=== PATIENT | male | born 2000 | race American Indian/Alaskan Native ===

== ENCOUNTER 2020-08-10 01:12 | Emergency (ER) | payer MEDICAID, OTHER ==
[2020-08-10] MEDS ORDERED: LORazepam 2 MG/ML SDV IVPUSH ONE (01:19)
[2020-08-10] MEDS ORDERED: LORazepam 2 MG/ML SDV ONE (01:22)
[2020-08-10] MEDS ORDERED: LORazepam 2 MG/ML SDV IV ONE ×2 (01:26→01:35)
[2020-08-10 01:47] LABS: PTT,PARTIAL THROMBOPLSTIN TIME 26.7 SEC (22.0-34.0)
[2020-08-10 01:50] LABS: ANION GAP 20.5 mEq/L (7-13); CHLORIDE,CL 105 mmol/L (98-107); SODIUM,NA 141 mmol/L (136-145)
[2020-08-10] MEDS ORDERED: Sodium Chloride 0.9% 1,000 ML IV ONE (02:07)
[2020-08-10] MEDS ORDERED: Norepinephrine 4 MG/4 ML SDV ONE (02:17)
[2020-08-10 02:27] LABS: AMPHETAMINES,URINE POSITIVE (NEGATIVE); BARBITURATES,URINE NEGATIVE (NEGATIVE); BENZODIAZEPINE,URINE NEGATIVE (NEGATIVE); MDMA (ECSTASY), URINE NEGATIVE (NEGATIVE); METHADONE,URINE NEGATIVE (NEGATIVE); METHAMPHETAMINES,URINE POSITIVE (NEGATIVE); OPIATES,URINE NEGATIVE (NEGATIVE); OXYCODONE,URINE NEGATIVE (NEGATIVE); PHENCYCLIDINE,URINE NEGATIVE (NEGATIVE); TCA,URINE NEGATIVE (NEGATIVE)
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
[2020-08-10] MEDS ORDERED: Norepinephrine 4 MG in Dextrose 5% in Water 246 ML IV SCH ×2 (02:30)
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
[2020-08-10] MEDS ORDERED: Sodium Chloride 0.9% 500 ML IV ONE (04:32)
[2020-08-10 04:36] VITALS: BP 89/43; PULSE 125
== END 2020-08-10 07:50 | disposition home or self-care (01) ==
LOC: DL.ED 01:12
DX: S01.01XA Laceration without foreign body of scalp, initial encounter (principal); F10.129 Alcohol abuse with intoxication, unspecified; F15.10 Other stimulant abuse, uncomplicated; Y90.8 Blood alcohol level of 240 mg/100 ml or more; X99.9XXA Assault by unspecified sharp object, initial encounter
CPT/HCPCS: 12002; 36415; 36430; 70460; 72125; 80053; 80305; 80307; 85025; 85610; 85730; 86850; 86900; 86901; 86920; 86922; 96365; 96366; 99285; J2060; J7030; J7040; J7060; P9016; 99283

== ENCOUNTER 2020-09-26 05:34 | Emergency (ER) | payer MEDICAID ==
[2020-09-26] MEDS ORDERED: MVI, Adult with Vitamin K 10 ML, Folic Acid 1 MG, Thiamine 100 MG in Lactated Ringers 1... IV ONE ×4 (05:43)
--- NOTE | 2020-09-26 06:07 | EDM.PDOCBH ---
<Vivian Alvarez - Last Filed: 09/26/20 07:31> ED HPI GENERAL MEDICAL PROBLEM - General Chief Complaint: Behavioral/Psych Stated Complaint: anxiety/hard to breath Time Seen by Provider: 09/26/20 05:45 - Related Data Allergies Allergy/AdvReac Type Severity Reaction Status Date / Time No Known Allergies Allergy Verified 09/26/20 05:42 Home Meds: Home Meds . [No Known Home Meds] 10/31/13 [History] COURSE, BEHAVIORAL HEALTH COMP - Course Re-Assessment/Re-Exam: Patient states improvement in symptoms of anxiety following fluid infusion; ETOH 336. He states he has a ride home. Will discharge patient home. Red flag signs and symptoms which would warrant reevaluation discussed. Patient dylon balized understanding and agreement with the plan of care. Departure - Departure Time of Disposition: 07:06 Disposition: Home, Self-Care 01 Condition: Good Clinical Impression: Anxiety, Blood alcohol level greater than 0.3, Hypernatremia, Elevated LFTs Acute alcohol intoxication Qualifiers: Complication of substance-induced condition: uncomplicated Qualified Code(s): F10.920 - Alcohol use, unspecified with intoxication, uncomplicated - Discharge Information *PRESCRIPTION DRUG MONITORING PROGRAM REVIEWED*: Not Applicable *COPY OF PRESCRIPTION DRUG MONITORING REPORT IN PATIENT JENNIFER: Not Applicable Instructions: Alcohol Intoxication, [id number], Managing Anxiety, Adult Forms: ED Department Discharge Additional Instructions: 1.) Refrain from drinking alcohol to excess. 2.) Drink plenty of water to stay hydrated. 3.) Eat a bland diet while you're recovering from your acute alcohol intoxication; avoid spicy, high-fat, greasy foods. <Taniya Boyd - Last Filed: 10/01/20 03:12> ED HPI GENERAL MEDICAL PROBLEM - General Source of Information: Reports: Patient, RN History Limitations: Reports: No Limitations - History of Present Illness INITIAL COMMENTS - FREE TEXT/NARRATIVE: ED with c/o anxiety attack feeling SOB on awakening. Admits ETOH yesterday, drinks half gallon vodka at least 4 times weekly. Last ETOH midnight. Denied other drug use. No fever chills or cough. Denies prior anxiety attacks. Denied withdrawal hx. Last drug/meth use approximately 3 months prior. Onset: Today Past Medical History - Past Health History Medical/Surgical History: Denies Medical/Surgical History Psychiatric History: Reports: Addiction - Past Surgical History GI Surgical History: Reports: Appendectomy, Cholecystectomy Social & Family History - Family History Family Medical History: No Pertinent Family History - Tobacco Use Tobacco Use Status *Q: Never Tobacco User Second Hand Smoke Exposure: Yes - Caffeine Use Caffeine Use: Reports: None - Recreational Drug Use Recreational Drug Use: No - Living Situation & Occupation Living situation: Reports: Single Occupation: Student ED ROS GENERAL - Review of Systems Review Of Systems: Comprehensive ROS is negative, except as noted in HPI. ED EXAM, BEHAVIORAL HEALTH - Physical Exam Exam: See Below Exam Limited By: No Limitations General Appearance: Alert, No Apparent Distress Eye Exam: Bilateral Eye: EOMI Ears: Normal External Exam, Hearing Grossly Normal Nose: Normal Inspection Throat/Mouth: Normal Inspection Head: Atraumatic, Normocephalic Neck: Normal Inspection Respiratory/Chest: No Respiratory Distress, Lungs Clear, Normal Breath Sounds Cardiovascular: Normal Peripheral Pulses, Regular Rate, Rhythm, Tachycardia GI/Abdominal: Normal Bowel Sounds, Soft, Non-Tender Extremities: Normal Range of Motion Neurological: Alert. No: Normal Cognition (slower than average) Psychiatric: Alert, Normal Affect Skin Exam: Warm, Dry, Intact. No: Signs of self injury COURSE, BEHAVIORAL HEALTH COMP - Course Vital Signs: Last Vital Signs Temp 98.1 F 09/26/20 05:43 Pulse 120 H 09/26/20 05:43 Resp 24 H 09/26/20 05:43 BP 148/89 H 09/26/20 05:43 Pulse Ox 100 09/26/20 05:43 Orders, Labs, Meds: Laboratory Tests 09/26/20 09/26/20 09/26/20 Range/Units 05:48 05:48 07:10 WBC 10.9 H (5.0-10.0) 10^3/uL RBC 4.29 L (4.6-6.2) 10^6/uL Hgb 11.2 L D (14.0-18.0) g/dL Hct 35.0 L (40.0-54.0) % MCV 81.6 D (80-100) fL MCH 26.1 L (27.0-34.0) pg MCHC 32.0 L (33.0-35.0) g/dL Plt Count 468 H D (150-450) 10^3/uL Neut % (Auto) 53.2 (42.2-75.2) % Lymph % (Auto) 36.1 (20.5-50.1) % [place] % (Auto) 10.1 H (2-8) % Eos % (Auto) 0.2 L (1.0-3.0) % Baso % (Auto) 0.4 (0.0-1.0) % Sodium 147 H (136-145) mmol/L Potassium 3.5 (3.5-5.1) mmol/L Chloride 108 H (98-107) mmol/L Carbon Dioxide 27 (21-32) mmol/L Anion Gap 15.5 H (7-13) mEq/L BUN 13 (7-18) mg/dL Creatinine 0.93 (0.70-1.30) mg/dL Est Cr Clr Drug Dosing TNP Estimated GFR (MDRD) > 60 BUN/Creatinine Ratio 14.0 (No establ ref range) Glucose 108 H (74-99) mg/dL Calcium 7.3 L (8.5-10.1) mg/dL Total Bilirubin 0.2 (0.2-1.0) mg/dL AST 71 H (15-37) U/L ALT 65 H (16-63) U/L Alkaline Phosphatase 118 H (46-116) U/L Total Protein 7.2 (6.4-8.2) g/dL Albumin 3.4 (3.4-5.0) g/dL Globulin 3.8 Albumin/Globulin Ratio 0.9 Urine Opiates Screen Negative (NEGATIVE) Ur Oxycodone Screen Negative (NEGATIVE) Urine Methadone Screen Negative (NEGATIVE) Ur Barbiturates Screen Negative (NEGATIVE) U Tricyclic Antidepress Negative (NEGATIVE) Ur Phencyclidine Scrn Negative (NEGATIVE) Ur Amphetamine Screen Negative (NEGATIVE) U Methamphetamines Scrn Negative (NEGATIVE) Urine MDMA Screen Negative (NEGATIVE) U Benzodiazepines Scrn Negative (NEGATIVE) Urine Cocaine Screen Negative (NEGATIVE) U Marijuana (THC) Screen Positive H (NEGATIVE) Ethyl Alcohol 332 (0) mg/dL Medications Discontinued Medications Generic Name Dose Route Start Last Admin Trade Name Freq PRN Reason Stop Dose Admin Multivitamins/Minerals 10 ml/ 1,011.2 mls @ 999 mls/hr 09/26/20 05:43 09/26/20 06:03 Folic Acid 1 mg/ Thiamine HCl IV 03/18/21 06:43 999 mls/hr 100 mg/ Lactated Ringer's ONETIME ONE Administration Sepsis Event Note (ED) - Evaluation Sepsis Screening Result: No Definite Risk
[2020-09-26 06:10] LABS: ANION GAP 15.5 mEq/L (7-13); CHLORIDE,CL 108 mmol/L (98-107); SODIUM,NA 147 mmol/L (136-145)
[2020-09-26 06:15] VITALS: BP 148/89; PULSE 120
== END 2020-09-26 07:30 | disposition home or self-care (01) ==
LOC: DL.ED 05:34
DX: F41.9 Anxiety disorder, unspecified (principal); F10.120 Alcohol abuse with intoxication, uncomplicated; R79.89 Other specified abnormal findings of blood chemistry; E87.0 Hyperosmolality and hypernatremia; Z77.22 Contact with and (suspected) exposure to environmental tobacco smoke (acute) (chronic); Y90.0 Blood alcohol level of less than 20 mg/100 ml
CPT/HCPCS: 36415; 80053; 80305; 80307; 85025; 96365; 99284; J3411; J7120; J3490

== ENCOUNTER 2021-02-27 14:30 | Emergency (ER) | payer MEDICAID ==
[2021-02-27 14:52] VITALS: BP 155/89; PULSE 104
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
== END 2021-02-27 15:10 | disposition left against medical advice (07) ==
LOC: DL.ED 14:30
DX: R56.9 Unspecified convulsions (principal)
CPT/HCPCS: 99282; 99285

== ENCOUNTER 2021-03-01 19:19 | Emergency (ER) | payer MEDICAID ==
--- NOTE | 2021-03-01 19:55 | EDM.PDOC ---
ED HPI GENERAL MEDICAL PROBLEM - General Chief Complaint: Respiratory Problem Stated Complaint: HARD TO BREATH, COUGH UP BLOOD Time Seen by Provider: 03/01/21 19:54 Source of Information: Reports: Patient - History of Present Illness INITIAL COMMENTS - FREE TEXT/NARRATIVE: Patient is an unfortunate 20-year-old male who presents emerged department today with complaint of hemoptysis. The patient reports that he was out [place] the [place] 1 week ago and has had a productive yellow sputum cough ever since. Patient reports that he normally drinks a liter of alcohol daily and for the last 4 days he had not and that he drank a liter of alcohol this morning he started having hemoptysis today and this concerned the patient so presented to the emergency department for further evaluation. Patient reports that he has blood streaks mixed with the sputum is not solely blood, the patient denies any fever no chills no body aches no chest pain no shortness of breath Chest Pain Score (Numeric/FACES): 4 - Related Data Allergies Allergy/AdvReac Type Severity Reaction Status Date / Time No Known Allergies Allergy Verified 03/01/21 20:05 Home Meds: Home Meds . [No Known Home Meds] 10/31/13 [History] Past Medical History - Past Health History Medical/Surgical History: Denies Medical/Surgical History Psychiatric History: Reports: Addiction - Past Surgical History GI Surgical History: Reports: Appendectomy, Cholecystectomy Social & Family History - Family History Family Medical History: No Pertinent Family History - Caffeine Use Caffeine Use: Reports: None - Living Situation & Occupation Living situation: Reports: Single Occupation: Student ED ROS GENERAL - Review of Systems Review Of Systems: See Below Constitutional: Denies: Fever, Chills Respiratory: Reports: Cough, Sputum (Yellow), Hemoptysis ED EXAM, GENERAL - Physical Exam Exam: See Below General Appearance: Alert, WD/WN, Mild Distress Throat/Mouth: Normal Inspection, Normal Lips, Normal Teeth, Normal Gums, Normal Oropharynx, Normal Voice, No Airway Compromise Head: Atraumatic, Normocephalic Neck: Normal Inspection, Supple, Non-Tender, Full Range of Motion Respiratory/Chest: No Respiratory Distress, Lungs Clear, Normal Breath Sounds, No Accessory Muscle Use, Chest Non-Tender Cardiovascular: Normal Peripheral Pulses, Regular Rate, Rhythm, No Edema, No Gallop, No JVD, No Murmur, No Rub GI/Abdominal: Normal Bowel Sounds, Soft, Non-Tender, No Organomegaly, No Distention, No Abnormal Bruit, No Mass Back Exam: Normal Inspection, Full Range of Motion, NT Extremities: Normal Inspection, Normal Range of Motion, Non-Tender, Normal Capillary Refill, No Pedal Edema Neurological: Alert, Oriented Skin Exam: Warm, Dry, Intact, No Rash #1 Interpretation EKG Date: 03/01/21 Time: 21:20 Rhythm: NSR [place]: Normal P-Wave: Present ST-T: Other (NSST) QT: Normal EKG Interpretation Comments: Left anterior fascicular block, lateral T wave flattening V6, no acute ischemic changes no STEMI Course - Vital Signs Text/Narrative:: Discussed the case with Dr. Major Lopez in [place] he accepts the patient in transfer ischemic cardiomyopathy at 2225 Last Recorded V/S: Last Vital Signs Temp 97.6 F 03/01/21 21:26 Pulse 101 H 03/01/21 21:26 Resp 40 H 03/01/21 21:26 BP 128/73 03/01/21 21:26 Pulse Ox 93 L 03/01/21 21:26 - Orders/Labs/Meds Labs: Laboratory Tests 03/01/21 03/01/21 03/01/21 Range/Units 20:40 20:40 20:40 WBC 8.7 (5.0-10.0) 10^3/uL RBC 4.67 (4.6-6.2) 10^6/uL Hgb 12.6 L (14.0-18.0) g/dL Hct 38.7 L (40.0-54.0) % MCV 82.9 (80-100) fL MCH 27.0 (27.0-34.0) pg MCHC 32.6 L (33.0-35.0) g/dL Plt Count 286 D (150-450) 10^3/uL Neut % (Auto) 67.4 (42.2-75.2) % Lymph % (Auto) 18.6 L (20.5-50.1) % [place] % (Auto) 11.7 H (2-8) % Eos % (Auto) 1.8 (1.0-3.0) % Baso % (Auto) 0.5 (0.0-1.0) % PT 10.3 (9.0-12.0) SEC INR 1.0 (0.9-1.2) Sodium 137 D (136-145) mmol/L Potassium 3.1 L (3.5-5.1) mmol/L Chloride 104 (98-107) mmol/L Carbon Dioxide 23 (21-32) mmol/L Anion Gap 13.1 H (7-13) mEq/L BUN 12 (7-18) mg/dL Creatinine 1.18 (0.70-1.30) mg/dL Est Cr Clr Drug Dosing 108.69 mL/min Estimated GFR (MDRD) > 60 BUN/Creatinine Ratio 10.2 (No establ ref range) Glucose 101 H (70-99) mg/dL Calcium 7.4 L (8.5-10.1) mg/dL Total Bilirubin 0.4 (0.2-1.0) mg/dL AST 109 H (15-37) U/L ALT 122 H (16-63) U/L Alkaline Phosphatase 110 (46-116) U/L Troponin I High Sens (<=76) pg/mL B-Natriuretic Peptide (0-100) pg/ml Total Protein 6.6 (6.4-8.2) g/dL Albumin 2.1 L (3.4-5.0) g/dL Globulin 4.5 Albumin/Globulin Ratio 0.47 Urine Opiates Screen (NEGATIVE) Ur Oxycodone Screen (NEGATIVE) Urine Methadone Screen (NEGATIVE) Ur Barbiturates Screen (NEGATIVE) U Tricyclic Antidepress (NEGATIVE) Ur Phencyclidine Scrn (NEGATIVE) Ur Amphetamine Screen (NEGATIVE) U Methamphetamines Scrn (NEGATIVE) Urine MDMA Screen (NEGATIVE) U Benzodiazepines Scrn (NEGATIVE) Urine Cocaine Screen (NEGATIVE) U Marijuana (THC) Screen (NEGATIVE) SARS-CoV-2 RNA (ELYSE) (NEGATIVE) 03/01/21 03/01/21 03/01/21 Range/Units 20:40 21:29 21:48 WBC (5.0-10.0) 10^3/uL RBC (4.6-6.2) 10^6/uL Hgb (14.0-18.0) g/dL Hct (40.0-54.0) % MCV (80-100) fL MCH (27.0-34.0) pg MCHC (33.0-35.0) g/dL Plt Count (150-450) 10^3/uL Neut % (Auto) (42.2-75.2) % Lymph % (Auto) (20.5-50.1) % [place] % (Auto) (2-8) % Eos % (Auto) (1.0-3.0) % Baso % (Auto) (0.0-1.0) % PT (9.0-12.0) SEC INR (0.9-1.2) Sodium (136-145) mmol/L Potassium (3.5-5.1) mmol/L Chloride (98-107) mmol/L Carbon Dioxide (21-32) mmol/L Anion Gap (7-13) mEq/L BUN (7-18) mg/dL Creatinine (0.70-1.30) mg/dL Est Cr Clr Drug Dosing mL/min Estimated GFR (MDRD) BUN/Creatinine Ratio (No establ ref range) Glucose (70-99) mg/dL Calcium (8.5-10.1) mg/dL Total Bilirubin (0.2-1.0) mg/dL AST (15-37) U/L ALT (16-63) U/L Alkaline Phosphatase (46-116) U/L Troponin I High Sens 80 H* (<=76) pg/mL B-Natriuretic Peptide 1660 H (0-100) pg/ml Total Protein (6.4-8.2) g/dL Albumin (3.4-5.0) g/dL Globulin Albumin/Globulin Ratio Urine Opiates Screen Negative (NEGATIVE) Ur Oxycodone Screen Negative (NEGATIVE) Urine Methadone Screen Negative (NEGATIVE) Ur Barbiturates Screen Negative (NEGATIVE) U Tricyclic Antidepress Negative (NEGATIVE) Ur Phencyclidine Scrn Negative (NEGATIVE) Ur Amphetamine Screen Negative (NEGATIVE) U Methamphetamines Scrn Negative (NEGATIVE) Urine MDMA Screen Negative (NEGATIVE) U Benzodiazepines Scrn Negative (NEGATIVE) Urine Cocaine Screen Negative (NEGATIVE) U Marijuana (THC) Screen Positive H (NEGATIVE) SARS-CoV-2 RNA (ELYSE) Negative (NEGATIVE) Meds: Medications Discontinued Medications Generic Name Dose Route Start Last Admin Trade Name Freq PRN Reason Stop Dose Admin Furosemide 40 mg 03/01/21 21:10 03/01/21 21:21 Furosemide 40 Mg/4 Ml Vial IVPUSH 03/01/21 21:11 40 mg ONETIME ONE Administration Departure - Departure Time of Disposition: 22:27 Disposition: DC/Tfer to Acute Hospital 02 Condition: Fair Clinical Impression: Ischemic cardiomyopathy CHF (congestive heart failure) Qualifiers: Heart failure type: unspecified Heart failure chronicity: unspecified Qualified Code(s): I50.9 - Heart failure, unspecified - Discharge Information *PRESCRIPTION DRUG MONITORING PROGRAM REVIEWED*: No *COPY OF PRESCRIPTION DRUG MONITORING REPORT IN PATIENT JENNIFER: No Forms: ED Department Discharge Sepsis Event Note (ED) - Focused Exam Vital Signs: Vital Signs Temp Pulse Resp BP Pulse Ox 03/01/21 21:26 97.6 F 101 H 40 H 128/73 93 L 03/01/21 20:05 96.7 F L 96 27 H 138/99 H 94 L 03/01/21 19:53 97.1 F 99 25 H 102/68 91 L
--- NOTE | 2021-03-01 20:23 | CR ---
PROCEDURE INFORMATION: Exam: XR Chest Exam date and time: 03/01/2021 8:05 PM Age: 20 years old Clinical indication: Cough and shortness of breath; Additional info: Cough/hemoptysis TECHNIQUE: Imaging protocol: XR of the chest. Views: 2 views. COMPARISON: No relevant prior studies available. FINDINGS: Lungs: There is mild nonspecific prominence of the pulmonary vasculature. There is mild prominence of the interstitial markings diffusely. No focal consolidation is seen. Pleural spaces: There is slight blunting of the right lateral costophrenic angle suggesting a small pleural effusion. Heart/Mediastinum: The heart is borderline enlarged. Bones/joints: Unremarkable IMPRESSION: Findings are suggestive of mild congestive heart failure with a small right pleural effusion.
[2021-03-01 21:08] LABS: CHLORIDE,CL 104 mmol/L (98-107)
[2021-03-01] MEDS ORDERED: Furosemide 40 MG/4 ML VIAL IVPUSH ONE (21:10)
[2021-03-01 21:14] LABS: ANION GAP 13.1 mEq/L (7-13); SODIUM,NA 137 mmol/L (136-145)
[2021-03-01 21:56] LABS: AMPHETAMINES,URINE NEGATIVE (NEGATIVE); BARBITURATES,URINE NEGATIVE (NEGATIVE); BENZODIAZEPINE,URINE NEGATIVE (NEGATIVE); MDMA (ECSTASY), URINE NEGATIVE (NEGATIVE); METHADONE,URINE NEGATIVE (NEGATIVE); METHAMPHETAMINES,URINE NEGATIVE (NEGATIVE); OPIATES,URINE NEGATIVE (NEGATIVE); OXYCODONE,URINE NEGATIVE (NEGATIVE); PHENCYCLIDINE,URINE NEGATIVE (NEGATIVE); TCA,URINE NEGATIVE (NEGATIVE)
[2021-03-01] MEDS ORDERED: Nitroglycerin/D5W 25 MG/250 ML BOTTLE IV SCH (23:00)
[2021-03-01 23:36] VITALS: BP 133/92; PULSE 101
== END 2021-03-02 00:52 ==
LOC: DL.ED 19:19
DX: I25.5 Ischemic cardiomyopathy (principal); I50.9 Heart failure, unspecified; Z20.822 Contact with and (suspected) exposure to COVID-19
CPT/HCPCS: 36415; 71046; 80053; 80305; 83880; 84484; 85025; 85610; 87635; 93005; 96365; 96375; 99285; J1940; J3490; U0002

== ENCOUNTER 2021-08-01 13:04 | Emergency (ER) | payer MEDICAID ==
[2021-08-01] MEDS ORDERED: Lidocaine 1% with EPINEPHrine 1:100,000 20 ML MDV INJECT ONE (13:22)
[2021-08-01] MEDS ORDERED: Lidocaine 1% with EPINEPHrine 1:100,000 20 ML MDV ONE (13:24)
[2021-08-01 13:33] VITALS: BP 105/58; PULSE 97
[2021-08-01 14:10] LABS: AMPHETAMINES,URINE POSITIVE (NEGATIVE); BARBITURATES,URINE NEGATIVE (NEGATIVE); BENZODIAZEPINE,URINE NEGATIVE (NEGATIVE); MDMA (ECSTASY), URINE NEGATIVE (NEGATIVE); METHADONE,URINE NEGATIVE (NEGATIVE); METHAMPHETAMINES,URINE POSITIVE (NEGATIVE); OPIATES,URINE NEGATIVE (NEGATIVE); OXYCODONE,URINE NEGATIVE (NEGATIVE); PHENCYCLIDINE,URINE NEGATIVE (NEGATIVE); TCA,URINE NEGATIVE (NEGATIVE)
[2021-08-01 14:23] LABS: ACETAMINOPHEN 0 ug/mL (10-30 (Therapeutic)); CHLORIDE,CL 104 mmol/L (98-107); SODIUM,NA 140 mmol/L (136-145)
== END 2021-08-01 15:45 | disposition home or self-care (01) ==
LOC: DL.ED 13:04
DX: S51.812A Laceration without foreign body of left forearm, initial encounter (principal); F15.90 Other stimulant use, unspecified, uncomplicated; Z72.89 Other problems related to lifestyle; Y90.8 Blood alcohol level of 240 mg/100 ml or more; Z72.0 Tobacco use; X78.8XXA Intentional self-harm by other sharp object, initial encounter
CPT/HCPCS: 12002; 36415; 80053; 80143; 80179; 80305-QW; 80307; 81001; 85025; 99284-25

== ENCOUNTER 2021-08-01 19:11 | Emergency (ER) | payer OTHER, MEDICAID ==
[2021-08-01] MEDS ORDERED: Iopamidol 612 MG/ML 100 ML Bottle IVPUSH ONE (19:34)
[2021-08-01 19:44] LABS: ANION GAP 20.5 mEq/L (7-13); CHLORIDE,CL 106 mmol/L (98-107); SODIUM,NA 143 mmol/L (136-145)
== END 2021-08-01 23:25 | disposition home or self-care (01) ==
LOC: DL.ED 19:11
DX: F10.129 Alcohol abuse with intoxication, unspecified (principal); S01.21XA Laceration without foreign body of nose, initial encounter; Y90.8 Blood alcohol level of 240 mg/100 ml or more; V89.2XXA Person injured in unspecified motor-vehicle accident, traffic, initial encounter; Y92.410 Unspecified street and highway as the place of occurrence of the external cause
CPT/HCPCS: 36415; 70450; 71260; 72125; 74177; 80053; 80307; 85025; 99284; Q9967

== ENCOUNTER 2022-03-16 07:14 | Emergency (ER) | payer MEDICAID ==
[2022-03-16 06:35] VITALS: BP 149/101; PULSE 164
[2022-03-16 07:08] LABS: CHLORIDE,CL 94 mmol/L (98-107); SODIUM,NA 131 mmol/L (136-145)
[2022-03-16 07:09] LABS: ESTIMATED GFR 113 mL/min (>=60)
[2022-03-16 07:10] LABS: ACETAMINOPHEN 0 ug/mL (10-30 (Therapeutic))
[2022-03-16 07:12] LABS: BARBITURATES,URINE NEGATIVE (NEGATIVE); BENZODIAZEPINE,URINE NEGATIVE (NEGATIVE); MDMA (ECSTASY), URINE NEGATIVE (NEGATIVE); METHADONE,URINE NEGATIVE (NEGATIVE); METHAMPHETAMINES,URINE POSITIVE (NEGATIVE); OPIATES,URINE NEGATIVE (NEGATIVE); TCA,URINE NEGATIVE (NEGATIVE)
[2022-03-16 07:13] LABS: AMPHETAMINES,URINE POSITIVE (NEGATIVE); OXYCODONE,URINE NEGATIVE (NEGATIVE); PHENCYCLIDINE,URINE NEGATIVE (NEGATIVE)
[~2022-03-16 07:14] MED LIST: Diltiazem 25 MG/5 ML SDV IVPUSH ONE; Diltiazem 25 MG/5 ML SDV ONE; LORazepam 2 MG/ML SDV IVPUSH ONE; Sodium Chloride 0.9% 1,000 ML IV ONE
[2022-03-16] MEDS ORDERED: MVI, Adult with Vitamin K 10 ML, Thiamine 100 MG, Folic Acid 1 MG in Lactated Ringers 1... IV ONE ×4 (07:18)
[2022-03-16] MEDS ORDERED: LORazepam 2 MG/ML SDV IVPUSH ONE ×2 (07:19→08:52)
[2022-03-16] MEDS ORDERED: Sodium Chloride 0.9% 10 ML Syringe FLUSH PRN (07:37)
[2022-03-16] MEDS ORDERED: cefTRIAXone 1 GM in Sodium Chloride 0.9% 50 ML IV ONE (07:37)
[2022-03-16] MEDS ORDERED: Diltiazem 125 MG in Sodium Chloride 0.9% 100 ML IV SCH (07:45)
[2022-03-16] MEDS ORDERED: Sodium Chloride 0.9% 1,000 ML IV ONE (08:51)
[2022-03-16] MEDS ORDERED: PHENobarbital Sodium 65 MG/ML SDV IVPUSH ONE (10:29)
[2022-03-18 13:46] LABS: C.TRACHOMATIS BY TMA Negative (Negative); N.GONORRHOEAE BY TMA Positive (Negative)
== END 2022-03-16 10:55 ==
LOC: DL.ED 07:14
DX: R56.9 Unspecified convulsions (principal); F10.230 Alcohol dependence with withdrawal, uncomplicated; I48.91 Unspecified atrial fibrillation; F15.10 Other stimulant abuse, uncomplicated; Z20.822 Contact with and (suspected) exposure to COVID-19; Y90.0 Blood alcohol level of less than 20 mg/100 ml
CPT/HCPCS: 36415; 71045; 80053; 80143; 80179; 80305-QW; 80307; 81001; 82140; 82150; 83605; 83690; 83735; 84443; 84484; 85025; 85610; 87040; 87086; 87491; 87563; 87591; 93005; 93010; 96361; 96365; 96366; 96368; 96375; 96376; 99285; 99285-25; J0696; J2060; J3411; J3490; J7030; J7120; U0002

== ENCOUNTER 2023-08-19 17:43 | Emergency (ER) | payer MEDICAID ==
[2023-08-19 17:51] VITALS: BP 131/89; PULSE 94
[2023-08-19 18:05] LABS: BASOPHILS PERCENT AUTO 0.3 % (0.0-1.0); EOSINOPHILS PERCENT AUTO 2.8 % (1.0-3.0); HEMATOCRIT 49.8 % (40.0-54.0); HEMOGLOBIN 17.3 g/dL (14.0-18.0); LYMPHOCYTES PERCENT AUTO 48.5 % (20.5-50.1); MEAN CORPUSCULAR HEMOGLOBIN 30.7 pg (27.0-34.0); MEAN CORPUSCULAR HGB CONC 34.7 g/dL (33.0-35.0); MEAN CORPUSCULAR VOLUME 88.3 fL (80-100); MONOCYTES PERCENT AUTO 6.7 % (2-8); NEUTROPHILS PERCENT AUTO 41.7 % (42.2-75.2); PLATELET COUNT,PLT 355 10^3/uL (150-450); RED BLOOD CELL COUNT 5.64 10^6/uL (4.6-6.2); WHITE BLOOD CELL COUNT,WBC 7.5 10^3/uL (5.0-10.0)
[2023-08-19] MEDS: Sodium Chloride 0.9% 10 ML Syringe FLUSH PRN (18:09)
[2023-08-19 18:22] LABS: INR 0.9 (0.9-1.2); PROTHROMBIN TIME 9.6 SEC (9.0-12.0)
[2023-08-19 18:27] LABS: A/G RATIO 0.9; ALANINE AMINOTRANSFERASE,ALT 147 U/L (16-63); ALBUMIN 3.5 g/dL (3.4-5.0); ALKALINE PHOSPHATASE 110 U/L (46-116); AMYLASE 69 U/L (25-115); ANION GAP 14.5 mEq/L (7-13); ASPARTATE AMNIOTRANSFERASE,AST 101 U/L (15-37); BILIRUBIN TOTAL 0.2 mg/dL (0.2-1.0); BLOOD UREA NITROGEN,BUN 11 mg/dL (7-18); BUN/CREATININE RATIO 13.8 (No establ ref range); CALCIUM 7.8 mg/dL (8.5-10.1); CARBON DIOXIDE,CO2 24 mmol/L (21-32); CHLORIDE,CL 106 mmol/L (98-107); EST CRCL DRUG DOSING (CG) 151.65 mL/min; GLUCOSE RANDOM 110 mg/dL (70-99); LIPASE 49 U/L (16-77); POTASSIUM,K 3.5 mmol/L (3.5-5.1); PROTEIN TOTAL,TP 7.6 g/dL (6.4-8.2); SODIUM,NA 141 mmol/L (136-145)
[2023-08-19 18:28] LABS: ESTIMATED GFR 127 mL/min (>=60)
[2023-08-19 18:29] LABS: ETHANOL BLOOD MEDICAL 434 mg/dL (0)
[2023-08-19 18:30] LABS: B-TYPE NATRIURETIC PEPTIDE,BNP < 5 pg/ml (0-100)
[2023-08-19 18:44] LABS: CORONAVIRUS COVID-19 NAA NEGATIVE (NEGATIVE); INFLUENZA A NAA NEGATIVE (NEGATIVE); INFLUENZA B NAA NEGATIVE (NEGATIVE); RESPIRATORY SYNCYTIAL VIR NAA NEGATIVE (NEGATIVE)
[2023-08-19] MEDS: Sodium Chloride 0.9% 1,000 ML IV ONE (18:46)
[2023-08-19] MEDS: Thiamine 100 MG in Sodium Chloride 0.9% 100 ML IV ONE (18:46)
== END 2023-08-19 19:15 | disposition home or self-care (01) ==
LOC: DL.ED 17:43
DX: M94.0 Chondrocostal junction syndrome [Tietze] (principal); F10.10 Alcohol abuse, uncomplicated; Y90.8 Blood alcohol level of 240 mg/100 ml or more
CPT/HCPCS: 0241U; 36415; 71045; 80053; 80307; 82150; 83690; 83880; 84145; 84484; 85025; 85610; 85730; 93005; 93010; 96365; 99284; 99285; J3411; J3490; J7030

== ENCOUNTER 2024-01-30 20:36 | Emergency (ER) | payer MEDICAID ==
[2024-01-30 20:55] VITALS: PULSE 101
[2024-01-30] MEDS: Bupivacaine 0.5% 30 ML SDV ONE (21:38)
[2024-01-30] MEDS: Ketorolac 30 MG/ML SDV IM ONE (22:20)
[2024-01-30] MEDS: Acetaminophen 500 MG Tab PO ONE (22:20)
[2024-01-30] MEDS: fentaNYL 100 MCG/2 ML SDV IVPUSH ONE (23:28)
[2024-01-31 00:08] VITALS: BP 148/108
== END 2024-01-30 23:30 | disposition home or self-care (01) ==
LOC: DL.ED 20:36
DX: S02.5XXA Fracture of tooth (traumatic), initial encounter for closed fracture (principal); F17.210 Nicotine dependence, cigarettes, uncomplicated; Z90.49 Acquired absence of other specified parts of digestive tract; X58.XXXA Exposure to other specified factors, initial encounter
CPT/HCPCS: 64400; 96372; 96374; 99283; A9270; J1885; J3010